=== PATIENT | female | born 1995 | race Caucasian/White ===

== ENCOUNTER 2017-06-18 12:50 | Emergency (ER) | payer OTHER ==
[2017-06-18 12:55] VITALS: BP 115/75; PULSE 104; RESP 18; TEMP 98.9; O2SAT 98
[2017-06-18] MEDS ORDERED: Dexamethasone 4 mg/1 ml ONE (13:05)
--- NOTE | 2017-06-18 13:05 | ED PDOC ---
HPI: CCC, URI, Sore Throat Time Seen by Provider: 06/18/17 12:57 Chief Complaint (Nursing): ENT Problem Chief Complaint (Provider): ENT Problem History Per: Patient History/Exam Limitations: no limitations Onset/Duration Of Symptoms: Other (x 2 months) Current Symptoms Are (Timing): Still Present Associated Symptoms: Sore Throat Additional Complaint(s): Isatu is a 22 year old female who presents to the Emergency Department complaining of sore throat for the past 2 months, but worsen yesterday. Patient states she went to her doctor 2 months where she was told she had strep throat. Was given antibiotics by her doctor, but patient states it gave her an allergic reaction. Patient states last night that she was drooling and had a time breathing. States it hurts to swallow. PMD: Gerald Contreras Past Medical History Reviewed: Historical Data, Nursing Documentation, Vital Signs Vital Signs: Last Vital Signs Temp 98.9 F 06/18/17 12:51 Pulse 104 H 06/18/17 12:51 Resp 18 06/18/17 12:51 BP 115/75 06/18/17 12:51 Pulse Ox 98 06/18/17 14:03 - Medical History PMH: Anxiety, Asthma, Depression, Migraine - Surgical History Surgical History: No Surg Hx - Family History Family History: States: Unknown Family Hx - Home Medications Home Medications: Ambulatory Orders Medication Instructions Recorded Lexapro 06/28/15 Azithromycin [Zithromax] 250 mg PO DAILY #6 tab 06/18/17 Ibuprofen [Motrin] 600 mg PO Q8 PRN #21 tab 06/18/17 - Allergies Allergies/Adverse Reactions: Allergies Allergy/AdvReac Type Severity Reaction Status Date / Time amoxicillin Allergy RASH Verified 06/18/17 12:55 Review of Systems ROS Statement: Except As Marked, All Systems Reviewed And Found Negative ENT: Positive for: Throat Pain Physical Exam - Reviewed Nursing Documentation Reviewed: Yes Vital Signs Reviewed: Yes - Physical Exam Appears: Positive for: Well, Non-toxic Head Exam: Positive for: ATRAUMATIC, NORMAL INSPECTION, NORMOCEPHALIC Skin: Positive for: Normal Color Eye Exam: Positive for: Normal appearance ENT: Positive for: Pharyngeal Erythema (Moderate), Tonsillar Exudate (Small Exudate - right side), Other (no signs of peritonsillar absess at this time). Negative for: Normal ENT Inspection Neck: Positive for: Normal Respiratory: Negative for: Respiratory Distress Extremity: Positive for: Normal ROM Neurologic/Psych: Positive for: Alert, Oriented - ECG O2 Sat by Pulse Oximetry: 98 (RA) Pulse Ox Interpretation: Normal - Progress ED Course And Treament: rapid strep: positive decadron 10 mg IM x 1 dose Medical Decision Making Medical Decision Making: Time: 12:57 Plan: - Rapid Strep Group A Antigen - Decadron Inj Scribe Attestation: Documented by Aureliano Cardona, acting as a scribe for Huyen Gray PA-C Provider Scribe Attestation: All medical record entries made by the Scribe were at my direction and personally dictated by me. I have reviewed the chart and agree that the record accurately reflects my personal performance of the history, physical exam, medical decision making, and the department course for this patient. I have also personally directed, reviewed, and agree with the discharge instructions and disposition. Disposition - Clinical Impression Clinical Impression: Strep tonsillitis - Patient ED Disposition Is Patient to be Admitted: No - Disposition Referrals: Holland Hill MD [Staff Provider] - Disposition: Routine/Home Disposition Time: 14:05 Condition: FAIR Prescriptions: Azithromycin [Zithromax] 250 mg PO DAILY #6 tab Ibuprofen [Motrin] 600 mg PO Q8 PRN #21 tab PRN Reason: Pain, Moderate (4-7) Instructions: Strep Throat (ED) Forms: [employer] (Thai), [facility] ED School/Work Excuse
== END 2017-06-18 14:14 | disposition home or self-care (01) ==
LOC: H.ER 12:50
DX: J02.0 Streptococcal pharyngitis (principal); F32.9 Major depressive disorder, single episode, unspecified; F41.9 Anxiety disorder, unspecified; J45.909 Unspecified asthma, uncomplicated
CPT/HCPCS: 87430; 96372; 99282; J1100

== ENCOUNTER 2018-07-14 03:30 | Inpatient (IN) | payer SELFPAY ==
--- NOTE | 2018-07-14 04:59 | ED PDOC ---
HPI: Psych/Substance Abuse Time Seen by Provider: 07/14/18 03:35 Chief Complaint (Nursing): Psychiatric Evaluation Chief Complaint (Provider): Psychiatric Evaluation History Per: Patient History/Exam Limitations: no limitations Onset/Duration Of Symptoms: Persistent (x1 month) Current Symptoms Are (Timing): Still Present Additional Complaint(s): 23 year old female with pmHx of depression, presents to the ED with complaints of worsening depression and severe anxiety for the past month. Patient reports having suicidal ideation tonight with plan to overdose but had no access to pills. She denies any audio or visual hallucination. PCP: Dr. Jon Navarro Past Medical History Reviewed: Historical Data, Nursing Documentation, Vital Signs Vital Signs: Last Vital Signs Temp 98.3 F 07/14/18 03:50 Pulse 112 H 07/14/18 03:50 Resp 18 07/14/18 03:50 BP 108/72 07/14/18 03:50 Pulse Ox 96 07/14/18 03:50 - Medical History PMH: Anxiety, Asthma, Depression, Migraine - Family History Family History: States: Unknown Family Hx - Social History Current smoker - smoking cessation education provided: Yes ("1 pack lasts me 1 month") Alcohol: Occasional - Home Medications Home Medications: Ambulatory Orders Medication Instructions Recorded RX: No Known Home Med 07/14/18 - Allergies Allergies/Adverse Reactions: Allergies Allergy/AdvReac Type Severity Reaction Status Date / Time amoxicillin Allergy RASH Verified 06/18/17 12:55 Review of Systems ROS Statement: Except As Marked, All Systems Reviewed And Found Negative Psych: Positive for: Anxiety, Depression, Suicidal ideation. Negative for: Other (audio or visual hallucination) Physical Exam - Reviewed Nursing Documentation Reviewed: Yes Vital Signs Reviewed: Yes - Physical Exam Appears: Positive for: Non-toxic, No Acute Distress Head Exam: Positive for: ATRAUMATIC, NORMAL INSPECTION, NORMOCEPHALIC Skin: Positive for: Normal Color Eye Exam: Positive for: Normal appearance ENT: Positive for: Normal ENT Inspection Neck: Positive for: Normal Cardiovascular/Chest: Positive for: Regular Rate, Rhythm Respiratory: Positive for: Normal Breath Sounds. Negative for: Respiratory Distress Neurologic/Psych: Positive for: Alert, Oriented (x3), Mood/Affect (flat/anxious). Negative for: Motor/Sensory Deficits - Laboratory Results Result Diagrams: 07/14/18 06:00 07/14/18 06:00 - ECG O2 Sat by Pulse Oximetry: 96 (RA) Pulse Ox Interpretation: Normal Medical Decision Making Medical Decision Making: Initial Impression: 23 year old female with acute depression and SI. Initial Plan: * Drug screen * Crisis evaluation * 1:1 OBS * Urine * Urine dipstick Time: 546 --Upon crisis evaluation, patient requires psychiatric admission for acute depression, as per Dr. Maravilla. Labs reviewed show no clinically sig abnormalities. Patient is medically stable for psychiatric admission. Scribe Attestation: Documented by Vida Ortega, acting as a scribe for Patrick Romo MD. Provider Scribe Attestation: All medical record entries made by the Scribe were at my direction and personally dictated by me. I have reviewed the chart and agree that the record accurately reflects my personal performance of the history, physical exam, medical decision making, and the department course for this patient. I have also personally directed, reviewed, and agree with the discharge instructions and disposition. Disposition - Clinical Impression Clinical Impression: Depression - Disposition Disposition Time: 06:00 Condition: FAIR
[2018-07-14 06:18] LABS: BASO # 0.1 K/uL (0.0-0.2); BASO % 1.3 % (0.0-2.0); EOS # 0.1 K/uL (0.0-0.7); EOS % 1.6 % (0.0-4.0); HEMOGLOBIN 13.5 g/dL (12.0-16.0); LYMPH # 3.5 K/uL (1.0-4.3); LYMPH % 38.5 % (20.0-40.0); MEAN CELL VOLUME 91.9 fl (81.0-99.0); MEAN CORPUSCULAR HGB CONC 33.7 g/dL (33.0-37.0); MEAN PLATELET VOLUME 8.1 fl (7.2-11.7); MONO # 0.8 K/uL (0.0-0.8); MONO % 8.7 % (0.0-10.0); NEUT # 4.5 K/uL (1.8-7.0); NEUT % 49.9 % (50.0-75.0); NRBC % 0.3 % (0.0-0.0); RBC 4.37 Mil/uL (3.80-5.20); RED CELL DISTRIBUTION WIDTH 13.3 % (11.5-14.5)
[2018-07-14 06:23] LABS: ALB/GLOB RATIO 1.4 (1.0-2.1); ALBUMIN 4.6 g/dL (3.5-5.0); ALT/SGPT 37 U/L (9-52); AST/SGOT 28 U/L (14-36); BLOOD UREA NITROGEN 10 mg/dl (7-17); CALCIUM 9.3 mg/dL (8.4-10.2); GFR NON-AFRICAN AMERICAN > 60
[2018-07-14 06:41] LABS: BARBITURATES, UR NEGATIVE (NEGATIVE); BENZODIAZEPINES, UR NEGATIVE (NEGATIVE); OPIATES, UR NEGATIVE (NEGATIVE); PHENCYCLIDINE, UR NEGATIVE (NEGATIVE)
--- NOTE | 2018-07-14 09:03 | RAD ---
Date of service: 07/14/2018 HISTORY: admit COMPARISON: No prior. FINDINGS: LUNGS: No active pulmonary disease. PLEURA: No significant pleural effusion identified, no pneumothorax apparent. CARDIOVASCULAR: No aortic atherosclerotic calcification present. Normal cardiac size. No pulmonary vascular congestion. OSSEOUS STRUCTURES: No significant abnormalities. VISUALIZED UPPER ABDOMEN: Normal. OTHER FINDINGS: None. IMPRESSION: No active disease.
[2018-07-14] MEDS ORDERED: Alum-Mag Hydrox-Simethicone Susp (30 mL) PO PRN (09:38)
[2018-07-14] MEDS ORDERED: Magnesium Hydroxide Susp 30 ml UD PO PRN (09:38)
[2018-07-14] MEDS ORDERED: DiphenhydrAMINE 50 mg/ml Inj IM PRN (09:38)
--- NOTE | 2018-07-14 10:49 | PCM.PSYCH ---
Initial Psychiatric Evaluation - Initial Psychiatric Evaluation Type of Admission: Voluntary Legal Status: Capacity Chief Complaint (in patient's own words): "I have been feeling depressed." Patient's Reaction to Hospitalization: HPI: 23 yo female w/ h/o outpatient therapy with a psychologist, presents w/ worsening depression and anxiety and suicidal ideation in the context of alcohol intoxication (BAL 115 in the ER). She reports poor concentration. She denies acute suicidal ideation/plan/intent at this time and is requesting to be discharged. She submitted a 48 hr letter. She reports that she wants to live and is goal oriented, stating that she needs to complete her finals at school. She is agreeable to starting treatment with Lexapro and an outpatient referral for follow-up upon discharge. NO AH/VH/paranoia/delusions PPHx: H/o outpatient therapy; no history of treatment with medications or suicidal attempts PMHx: Migraines ALL: Amoxicillin SHx: +Student; smokes cig occasionally; reports "social" alcohol use; denies drug use Current Medications: Active Medications Generic Name Dose Route Start Last Admin Trade Name Freq PRN Reason Stop Dose Admin Acetaminophen 650 mg 07/14/18 09:38 Tylenol 325mg Tab PO Q4 PRN Pain, moderate (4-7) Al Hydrox/Mg Hydrox/Simethicone 30 ml 07/14/18 09:38 Maalox Plus 30 Ml PO Q4 PRN Dyspepsia Diphenhydramine HCl 50 mg 07/14/18 09:38 Benadryl IM Q6 PRN Extrapyramidal S/S Unable PO Diphenhydramine HCl 50 mg 07/14/18 09:38 Benadryl PO Q6 PRN Extrapyramidal Symptoms Escitalopram Oxalate 5 mg 07/14/18 10:30 Lexapro PO DAILY DEIDRE Haloperidol 5 mg 07/14/18 09:38 Haldol PO Q4 PRN Agitation Haloperidol Lactate 5 mg 07/14/18 09:38 Haldol IM Q4 PRN Agitation, Unable to Take PO Lorazepam 2 mg 07/14/18 09:38 Ativan IM Q4 PRN Anxiety/Agitation,Unable PO Lorazepam 0.5 mg 07/14/18 10:45 Ativan PO Q8 PRN Anxiety Magnesium Hydroxide 30 ml 07/14/18 09:38 Milk Of Magnesia PO HS PRN Constipation Past Psychiatric History - Past Psychiatric History Pertinent Medical Hx (Current Medical&Sleep Prob, Allergies): Allergies Allergy/AdvReac Type Severity Reaction Status Date / Time amoxicillin Allergy RASH Verified 06/18/17 12:55 No Known Home Med 07/14/18 Review of Systems - Psychiatric Psychiatric: Abnormal Sleep Pattern, Depression, Difficulty Concentrating, Irritability, Mood Swings, Suicidal Ideation Mental Status Examination - Personal Presentation Personal Presentation: Looks stated age - Affect Affect: Constricted - Motor Activity Motor Activity: Calm - Reliability in Providing Information Reliability in Providing Information: Good - Speech Speech: Organized, Coherent - Mood Mood: Depressed, Anxious - Formal Thought Process Formal Thought Process: No Impairment - Hallucinations/Delusions Additional comments: No AH/VH/paranoia/delusions - Obsessions/Compulsions Obsessions: No Compulsions: No - Cognitive Functions Orientation: Person, Place, Situation, Time Sensorium: Alert Attention/Concentration: Attentive Estimate of Intelligence: Average Memory: Recent intact, as evidence by: Ability to recall events of the day, Remote intact, as evidenced by: Abilit to recall sig. 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
--- NOTE | 2018-07-14 10:49 | PCM.BM ---
Treatment Plan Problems - Problems identified on initial assessmt Hoplessness/Helplessness Date Initiated: 07/14/18 Time Initiated: 09:00 Date resolved: 07/16/18 Assessment reference: NA Status: Active Priority: 1 Treatment assets and liabiliti Patient Assests: cooperative, motivated, self-reliant, ADL independent, physically healthy, good support system Patient Liabilities: other
[2018-07-14 19:31] VITALS: O2SAT 96
--- NOTE | 2018-07-15 08:22 | PCM.PYCHDC ---
Mental Status Examination - Mental Status Examination Orientation: Person, Place, Situation, Time Memory: Intact Mood: Neutral Affect: Broad Speech: Appropriate Attention: WNL Concentration: WNL Association: WNL Fund of Knowledge: WNL Formal Thought Process: No Impairment Description of patient's judgement and insight: Fair I/J Psychotic Thoughts and Behaviors: No AH/VH/paranoia/delusions Suicidal Ideation: No Current Homicidal Ideation?: No Discharge Summary - Discharge Note Reason for Hospitalization: HPI: 23 yo female w/ h/o outpatient therapy with a psychologist, presents w/ worsening depression and anxiety and suicidal ideation in the context of alcohol intoxication (BAL 115 in the ER). She reports poor concentration. She denies acute suicidal ideation/plan/intent at this time and is requesting to be discharged. She submitted a 48 hr letter. She reports that she wants to live and is goal oriented, stating that she needs to complete her finals at school. She is agreeable to starting treatment with Lexapro and an outpatient referral for follow-up upon discharge. NO AH/VH/paranoia/delusions PPHx: H/o outpatient therapy; no history of treatment with medications or suicidal attempts PMHx: Migraines ALL: Amoxicillin SHx: +Student; smokes cig occasionally; reports "social" alcohol use; denies prasad g use Consultations:: List each consultation separately and include: 1. Reason for request. 2. Findings. 3. Follow-up Summary of Hospital Course include:: 1. Description of specific treatment plan utilized for patients during their course of treatmen. 2. Summarize the time- course for resolution of acute symptoms and/or regressed behaviors. 3. Describe issues identified and worked on during hospitalization. 4. Describe medication utilized. 5. Describe medical problems identified and treated. 6. Reassessment of suicide risk Summary of Hospital Course: Patient was admitted to the psychiatry unit. Individual and group therapy were provided. Patient was started on Lexapro 5 mg PO Daily. She submitted a 48 hr letter requesting to be discharged. SW met w/ patient's family (mother and brother), who do not believe the patient is an acute danger to self or others. She reports improvement in mood and denies acute AH/VH/SI/HI. Patient does not meet criteria for involuntary psychiatric commitment and will be discharge to home. Psychoeducation provided on the importance of outpatient therapy and the dangers of alcohol/substance abuse. - Final Diagnosis (DSM 5) Condition upon Discharge: STABLE DSM 5: Adjustment Disorder w/ Mixed Depression and Anxiety Disposition: HOME/ ROUTINE Follow-up Treatment Plan: Adjustment Disorder w/ mixed depression and anxiety -Continue Lexapro 5 mg PO Daily -Individual and group therapy -Discharge to home Prescriptions/Medication Reconciliation: Escitalopram [Lexapro] 5 mg PO DAILY #30 tab - Smoking Cessation Smoking Cessation Medication prescribed: No Reason for not providing: Not indicated - Antipsychotic Medications Pt discharged on 2 or more routine antipsychotic medications: No
[2018-07-15 08:35] LABS: BLOOD UREA NITROGEN 17 mg/dl (7-17); CALCIUM 9.1 mg/dL (8.4-10.2); GFR NON-AFRICAN AMERICAN > 60; HDL CHOLESTEROL 55 MG/DL (30-70)
[2018-07-15 08:42] LABS: LDL CHOLESTEROL 100 mg/dL (0-129)
[2018-07-15 08:47] LABS: T4 5.61 ug/dl (5.5-11.0)
[2018-07-15 09:15] VITALS: BP 127/75; PULSE 91; RESP 20; TEMP 96.9
== END 2018-07-15 10:12 | disposition home or self-care (01) | DRG 882 ==
LOC: H.ER 03:30 → H.ERHOLD 05:43 → H.PSYCH 08:36
PROVIDERS: ADMIT Psychiatry & Neurology Psychiatry; ATTEND Psychiatry & Neurology Psychiatry
PROC: GZHZZZZ Group Psychotherapy (ICD-10-PCS; principal; 2018-07-14)
PROC: GZ51ZZZ Individual Psychotherapy, Behavioral (ICD-10-PCS; 2018-07-14)
PROC: GZ56ZZZ Individual Psychotherapy, Supportive (ICD-10-PCS; 2018-07-14)
DX: F43.23 Adjustment disorder with mixed anxiety and depressed mood (principal); R45.851 Suicidal ideations; J45.909 Unspecified asthma, uncomplicated; F10.129 Alcohol abuse with intoxication, unspecified; Y90.5 Blood alcohol level of 100-119 mg/100 ml; Z79.899 Other long term (current) drug therapy; G43.909 Migraine, unspecified, not intractable, without status migrainosus; F17.210 Nicotine dependence, cigarettes, uncomplicated